=== PATIENT | female | born 1955 | race American Indian/Alaskan Native ===

== ENCOUNTER 2019-02-13 20:29 | Emergency (ER) | payer MEDICARE ==
[2019-02-14] MEDS ORDERED: SUBLIMAZE IV STA ×2 (00:20→03:27)
[2019-02-14] MEDS ORDERED: ZOFRAN IV STA (00:21)
--- NOTE | 2019-02-14 01:18 | XRay Report ---
PROCEDURE: XR HUMERUS 2+V LT TECHNIQUE: Left humerus radiographs, AP and lateral views. HISTORY: fall at [facility] landed on left arm defromity noted COMPARISONS: None . FINDINGS: Fracture (s) and/or Dislocation(s): No evidence of an acute fracture on these nonstandard projection s. The distal aspect of the left humerus is not well evaluated . Joint space(s): Normal . Soft tissues: Normal . Bone mineralization: Normal . Foreign bodies: None . IMPRESSION: There is no evidence of an acute fracture. . This document is electronically signed by Nell Valdez DO., Feb 14 2019 01:16:20 AM ET
--- NOTE | 2019-02-14 01:20 | XRay Report ---
PROCEDURE: XR FOREARM LT TECHNIQUE: Left forearm radiographs, AP and lateral views. HISTORY: Trauma post fall arm pain COMPARISONS: None . FINDINGS: Fracture (s) and/or Dislocation(s): There is a displaced comminuted impacted fracture of the distal radius with posterior displacement of the distal fragments. Overlap of fragments is by approximately 2 cm. There is a displaced ulnar styloid process fracture. . Joint space(s): Moderate narrowing of joint spaces . Soft tissues: Normal . Bone mineralization: Normal . Foreign bodies: None . IMPRESSION: There is a displaced comminuted impacted fracture of the distal radius with posterior di splacement of the distal fragments. Overlap of the fragments is by approximately 2 cm. There is a dis placed ulnar styloid process fracture. . This document is electronically signed by Nell Valdez DO., Feb 14 2019 01:18:06 AM ET
--- NOTE | 2019-02-14 03:26 | Emergency Department Report ---
Upper Extremity - HPI Chief Complaint: Abdominal Pain Stated Complaint: PAIN IN LT SIDE Time Seen by Provider: 02/14/19 00:20 Upper Extremity: Left Shoulder, Left Wrist Occurred When: Today Mechanism: Fall Symptoms: Yes Pain with Movement, Yes Deformity, Yes Limited Range of Movement, No Bruising/Ecchymosis, No Laceration or Abrasion ED Review of Systems ROS: Stated complaint: PAIN IN LT SIDE Other details as noted in HPI Constitutional: denies: chills, fever Eyes: denies: eye pain, eye discharge, vision change ENT: denies: ear pain, throat pain Respiratory: denies: cough, shortness of breath, wheezing Cardiovascular: denies: chest pain, palpitations Endocrine: no symptoms reported Gastrointestinal: denies: abdominal pain, nausea, diarrhea Genitourinary: denies: urgency, dysuria, discharge Musculoskeletal: joint swelling, arthralgia. denies: back pain Skin: denies: rash, lesions Neurological: denies: headache, weakness, paresthesias Psychiatric: denies: anxiety, depression Hematological/Lymphatic: denies: easy bleeding, easy bruising ED Past Medical Hx - Past Medical History Previous Medical History?: Yes Additional medical history: liver failure, heart disease - Surgical History Past Surgical History?: No - Social History Smoking Status: Never Smoker Substance Use Type: None - Medications Home Medications: Home Medications Medication Instructions Recorded Confirmed Last Taken Type oxyCODONE /ACETAMINOPHEN [Percocet 1 tab PO Q6HR PRN #10 tablet 02/14/19 Unknown Rx 5/325] Upper Extremity Exam - Exam General: Vital signs noted. No distress. Alert and acting appropriately. Head and Torso: No HEENT Abnormality, No Neck Tenderness, No Chest/Lungs Abnormality, No Abdominal Tenderness, No Back Tenderness Shoulder Exam: Yes Normal Range of Motion in Shoulder, No Shoulder Tenderness, No Clavicle Tenderness, No Shoulder Deformity, No AC Joint Tenderness Arm Exam: No Arm/Humerus Tenderness, No Arm Deformity Elbow: No Elbow Tenderness, No Normal Range of Motion in Elbow, No Elbow Deformity Forearm: Yes Forearm Tenderness, Yes Forearm Deformity, No Pain with Pronation, No Pain with Supination Wrist: Yes Wrist Tenderness (the left was region was some deformity noted, slightly radial deviated.), Yes Normal ROM in Wrist, No Wrist Deformity, No Snuffbox Tenderness, No Pain with Axial Thumb Compression Hand: Yes Normal ROM in Digit(s), No Hand Tenderness, No Hand Deformity, No Digi t Tenderness, No Digit(s) Deformity, No Tendon Dysfunction CMS Exam: Yes Normal Capillary Refill, Yes Normal Distal Sensation, No Broken Skin, No Normal Distal Pulses Front/Back of Body, Lg (Color): 1 - Area of deformity and tenderness. ED Course Vital Signs 02/13/19 02/13/19 20:40 20:53 Temperature 97.4 F L 97.4 F L Pulse Rate 70 70 Respiratory 18 16 Rate Blood Pressure 123/71 123/71 Blood Pressure 123/71 [Left] O2 Sat by Pulse 100 96 Oximetry - Orthopedic Splinting/Casting Injury #1 Side: left Upper Extremity Immobilizer: sling/shoulder immobilize, volar spint Critical care attestation.: If time is entered above; I have spent that time in minutes in the direct care of this critically ill patient, excluding procedure time. ED Disposition Clinical Impression: Distal radial fracture, Fracture of ulnar styloid Disposition: DC-01 TO HOME OR SELFCARE Is pt being admited?: No Does the pt Need Aspirin: No Condition: Stable Instructions: Abdominal Pain (ED), Wrist Fracture in Adults (ED), Open Reduct ion and Internal Fixation of a Wrist Fracture (GEN) Prescriptions: oxyCODONE /ACETAMINOPHEN [Percocet 5/325] 1 tab PO Q6HR PRN #10 tablet PRN Reason: Pain Referrals: MICHELL AVENDAÑO [Other] - 3-5 Days FATEMEH MENDOZA MD [Staff Physician] - [place] (Please follow with was possible that he may likely need surgical intervention for repair of this wrist fracture)
--- NOTE | 2019-02-14 05:25 | XRay Report ---
PROCEDURE: XR RIBS UNI W PA CHEST 3+V LT TECHNIQUE: AP and oblique views of the left rib cage, PA view of the chest HISTORY: fall and brusing with pain to left ribs COMPARISONS: None FINDINGS: No mediastinal shift. Cardiac silhouette is not enlarged. Diffuse mild interstitial prominence. No pn eumothorax, effusion, or focal pulmonary opacity identified. No displaced fracture. IMPRESSION: No acute pulmonary finding or displaced rib fracture identified. This document is electronically signed by Ariel Almanza MD., Feb 14 2019 05:23:12 AM ET
[2019-02-14 06:15] VITALS: BP 115/59
== END 2019-02-14 06:14 | disposition home or self-care (01) ==
LOC: ED 20:29
DX: S52.502A Unspecified fracture of the lower end of left radius, initial encounter for closed fracture (principal); S52.612A Displaced fracture of left ulna styloid process, initial encounter for closed fracture; S20.219A Contusion of unspecified front wall of thorax, initial encounter; X58.XXXA Exposure to other specified factors, initial encounter; Y93.89 Activity, other specified; Y99.8 Other external cause status; Y92.89 Other specified places as the place of occurrence of the external cause
CPT/HCPCS: 29125; 71101; 73060; 73090; 96374; 96375; 96376; 99284; J2405; J3010